=== PATIENT | male | born 1975 | race African-American/Black ===

== ENCOUNTER 2017-01-17 21:36 | Inpatient (IN) | payer MEDICAID ==
[~2017-01-17] VITALS: Ht 170.2 cm; Wt 84.0 kg
[2017-01-17 23:08] LABS: Basophils # (auto) 0 uL; Basophils % (auto) 0.1 % (0.0-2.0); Eosinophils # (auto) 0.2 uL; Eosinophils % (auto) 2.5 % (0.0-7.0); Hematocrit 46.2 % (41.0-53.0); Hemoglobin 15.7 g/dL (13.5-17.5); Lymphocytes # (auto) 1.3 uL; Lymphocytes % (auto) 17.1 % (10.0-50.0); Mean Corpuscular Hemoglobin 30.1 pg (28.0-32.0); Mean Corpuscular Volume 88.7 fL (80.0-100.0); Mean Platelet Volume 8.1 fL (7.4-10.4); Monocytes # (auto) 0 uL; Monocytes % (auto) 0.6 % (0.0-12.0); Neutrophils % (auto) 79.7 % (37.0-80.0); Platelet Count (auto) 323 10^3/uL (140-450); Red Cell Distribution Width 12.9 % (11.6-16.0); White Blood Cell 7.5 10^3/uL (4.4-10.8)
[2017-01-17 23:19] LABS: Albumin 3.1 g/dL (3.4-5.0); BUN/Creatinine Ratio 8.8; Calcium 7.8 mg/dL (8.5-10.1); Potassium 4.4 mmol/L (3.5-5.1)
[2017-01-17 23:22] LABS: Bilirubin, Total 1.6 mg/dL (0.2-1.0); Total Protein 7.2 g/dL (6.4-8.2)
[2017-01-18] MEDS ORDERED: ONDANSETRON HCL 4 MG/2 ML VIAL IV ONE (02:45)
[2017-01-18] MEDS ORDERED: SODIUM CHLORIDE 0.9% 1,000 ML IV ONE (02:45)
[2017-01-18] MEDS ORDERED: HYDROmorphone HCL 2 MG/ML VL IV ONE (02:45)
[2017-01-18 04:10] LABS: Urine Bilirubin Negative (Negative); Urine Blood Negative /uL (Negative); Urine Color Yellow (Yellow); Urine Glucose Normal (Normal); Urine Ketone TRACE (Negative); Urine Mucus FEW (None Seen); Urine Nitrite Negative (Negative); Urine RBC <1 /hpf (0 - 3); Urine Urobilinogen Normal (Negative); Urine pH 5.5 (5.0-8.0)
[2017-01-18] MEDS: SODIUM CHLORIDE 0.9% 1,000 ML IV SCH ×2 (06:32→22:17)
[2017-01-18] MEDS ORDERED: TEMAZEPAM 15 MG CAP PO PRN (06:45)
[2017-01-18] MEDS ORDERED: ACETAMINOPHEN 325 MG TAB PO PRN (06:45)
[2017-01-18] MEDS ORDERED: DIAZEPAM 5 MG TAB PO PRN (07:30)
[2017-01-18] MEDS ORDERED: THIAMINE INJ 100 MG, MULTIPLE VITAMIN 10 ML, FOLIC ACID 1 MG, MAGNESIUM SULF SDV 50% 8 ... IV SCH ×5 (08:00)
[2017-01-18] MEDS: ONDANSETRON HCL 4 MG/2 ML VIAL IV PRN ×4 (09:24→22:12)
[2017-01-18] MEDS: MORPHINE SULF INJ 2 MG/ML SYRINGE 1ML IV PRN ×4 (09:26→22:11)
[2017-01-18] MEDS: PANTOPRAZOLE SODIUM 40 MG/10 ML VIAL IV SCH (09:28)
[2017-01-18] MEDS ORDERED: ENOXAPARIN SOD 30 MG/0.3 ML SYRINGE SC SCH (10:00)
[2017-01-18] MEDS: ENOXAPARIN SOD 40 MG/0.4 ML SYRINGE SC SCH (10:28)
[2017-01-18] MEDS: THIAMINE HCL 100 MG TAB PO SCH (10:28)
[2017-01-18] MEDS: FOLIC ACID 1 MG TAB PO SCH (10:28)
[2017-01-18] MEDS: HYDROcodone-ACET 5/325MG TAB PO PRN ×2 (11:32→20:26)
[2017-01-18 12:35] VITALS: BP 118/75
[2017-01-18] MEDS ORDERED: NOR5T PO (13:39)
[2017-01-18] MEDS ORDERED: HYDR-531 PO (13:41)
[2017-01-18 17:12] VITALS: BP 131/86
[2017-01-18 20:00] VITALS: BP 126/79
[2017-01-18 22:00] VITALS: BP 126/79
[2017-01-19] MEDS: ONDANSETRON HCL 4 MG/2 ML VIAL IV PRN ×2 (05:25→10:21)
[2017-01-19] MEDS: MORPHINE SULF INJ 2 MG/ML SYRINGE 1ML IV PRN ×2 (05:26→10:22)
[2017-01-19 05:30] VITALS: BP 119/77
[2017-01-19 06:23] LABS: Potassium 4.3 mmol/L (3.5-5.1)
[2017-01-19 06:29] LABS: Albumin 2.2 g/dL (3.4-5.0); BUN/Creatinine Ratio 3.8; Calcium 7.6 mg/dL (8.5-10.1)
[2017-01-19 06:30] LABS: Basophils # (auto) 0 uL; Basophils % (auto) 0.3 % (0.0-2.0); Eosinophils # (auto) 0.3 uL; Eosinophils % (auto) 5.9 % (0.0-7.0); Hematocrit 37.4 % (41.0-53.0); Hemoglobin 12.7 g/dL (13.5-17.5); Lymphocytes % (auto) 22.4 % (10.0-50.0); Mean Corpuscular Hemoglobin 30.4 pg (28.0-32.0); Mean Corpuscular Hgb Conc. 33.9 g/dL (32.0-36.0); Mean Corpuscular Volume 89.6 fL (80.0-100.0); Mean Platelet Volume 8.6 fL (7.4-10.4); Monocytes # (auto) 0.4 uL; Monocytes % (auto) 9.2 % (0.0-12.0); Neutrophils # (auto) 2.9 uL; Neutrophils % (auto) 62.2 % (37.0-80.0); Platelet Count (auto) 206 10^3/uL (140-450); Red Cell Distribution Width 13.1 % (11.6-16.0); White Blood Cell 4.6 10^3/uL (4.4-10.8)
[2017-01-19 06:32] LABS: Bilirubin, Total 2.4 mg/dL (0.2-1.0)
[2017-01-19] MEDS: SODIUM CHLORIDE 0.9% 1,000 ML IV SCH (07:58)
[2017-01-19] MEDS: HYDROcodone-ACET 5/325MG TAB PO PRN ×2 (08:25→13:49)
[2017-01-19 08:34] VITALS: BP 130/84
[2017-01-19] MEDS: PANTOPRAZOLE SODIUM 40 MG/10 ML VIAL IV SCH (10:20)
[2017-01-19] MEDS: ENOXAPARIN SOD 40 MG/0.4 ML SYRINGE SC SCH (10:20)
[2017-01-19] MEDS: FOLIC ACID 1 MG TAB PO SCH (10:20)
[2017-01-19] MEDS: THIAMINE HCL 100 MG TAB PO SCH (10:21)
[2017-01-19 12:29] VITALS: BP 118/71
[2017-01-19 12:57] VITALS: BP 118/71
== END 2017-01-19 15:00 | disposition home or self-care (01) | DRG 282 ==
LOC: ER 21:44 → OVERFLOW 21:45 → WEST WING 01-18 07:52 → EAST 01-18 07:58 → WEST WING 01-18 12:35
PROVIDERS: ADMIT Internal Medicine; ATTEND Internal Medicine Pulmonary Disease
DX: K85.20 Alcohol induced acute pancreatitis without necrosis or infection (principal); N17.0 Acute kidney failure with tubular necrosis; E43 Unspecified severe protein-calorie malnutrition; F10.10 Alcohol abuse, uncomplicated; Y90.3 Blood alcohol level of 60-79 mg/100 ml; Z72.0 Tobacco use; Z68.29 Body mass index [BMI] 29.0-29.9, adult
CPT/HCPCS: 36415; 74176; 74181; 80053; 80307; 80320; 81001; 82150; 83690; 85025; 96361; 96374; 96375; C9113; J2405

== ENCOUNTER 2018-11-17 16:56 | Emergency (ER) | payer MEDICAID ==
[~2018-11-17] VITALS: Ht 170.2 cm; Wt 88.5 kg
[~2018-11-17 16:56] MED LIST: HYDR-531 PO
[2018-11-17] MEDS ORDERED: IOHEXOL 300 MG/ML 100ML BOTTLE IJ ONE (17:11)
[2018-11-17 18:42] LABS: Calcium 7.1 mg/dL (8.5-10.1)
[2018-11-17 18:45] LABS: Basophils # (auto) 0 uL; Basophils % (auto) 0.7 % (0.0-2.0); Eosinophils # (auto) 0.1 uL; Eosinophils % (auto) 2.5 % (0.0-7.0); Hemoglobin 15.6 g/dL (13.5-17.5); Lymphocytes # (auto) 0.8 uL; Lymphocytes % (auto) 14.7 % (10.0-50.0); Mean Corpuscular Hemoglobin 31.9 pg (28.0-32.0); Mean Corpuscular Volume 93.8 fL (80.0-100.0); Monocytes # (auto) 0.2 uL; Neutrophils # (auto) 4.2 uL; Neutrophils % (auto) 79.1 % (37.0-80.0); Nucleated Red Blood Cells % 0.2 %; Platelet Count (auto) 256 10^3/uL (140-450); Red Cell Distribution Width 13.3 % (11.8-14.3); White Blood Cell 5.3 10^3/uL (4.4-10.8)
[2018-11-17 18:48] LABS: BUN/Creatinine Ratio 8.5
[2018-11-17 18:51] LABS: Blood Alcohol 283.8 mg/dL (0-5)
[2018-11-17] MEDS ORDERED: IOHEXOL 350 MG/ML 100ML IJ ONE (18:52)
[2018-11-17 19:43] LABS: Urine Bacteria NONE SEEN /hpf (None Seen); Urine Blood 1+ /uL (Negative); Urine Mucus FEW (None Seen); Urine Specific Gravity 1.022 (1.001-1.035); Urine WBC 1 /hpf (0 - 3)
[2018-11-17 19:56] LABS: Amphetamine Screen, Urine NEGATIVE (NEGATIVE); Barbiturate Scree,Urine NEGATIVE (NEGATIVE); Benzodiazephine Screen, Urine NEGATIVE (NEGATIVE); Cannabinoid Screen, Urine NEGATIVE (NEGATIVE); Cocaine Screen, Urine NEGATIVE (NEGATIVE); Opiate Scree,Urine POSITIVE (NEGATIVE); Phencyclidine Screen, Urine NEGATIVE (NEGATIVE)
[2018-11-17] MEDS ORDERED: LIDOCAINE W/ EPINEPHRINE 2% INJ 20ML VIAL ID ONE ×2 (20:00→20:15)
[2018-11-17 21:38] VITALS: BP 113/68
[2018-11-17] MEDS ORDERED: ONDANSETRON HCL 4 MG/2 ML VIAL IV ONE (22:45)
[2018-11-17] MEDS ORDERED: HYDROcodone-ACET 10/325MG TAB PO ONE (22:45)
== END 2018-11-17 23:10 | disposition home or self-care (01) ==
LOC: EDBD 16:56 → EDUNIT# 16:56 → ER 17:00
DX: S91.311A Laceration without foreign body, right foot, initial encounter (principal); S91.312A Laceration without foreign body, left foot, initial encounter; S01.01XA Laceration without foreign body of scalp, initial encounter; S30.1XXA Contusion of abdominal wall, initial encounter; I10 Essential (primary) hypertension; Z79.899 Other long term (current) drug therapy; V48.5XXA Car driver injured in noncollision transport accident in traffic accident, initial encounter; Y93.89 Activity, other specified; Y99.8 Other external cause status; Y92.488 Other paved roadways as the place of occurrence of the external cause
CPT/HCPCS: 12005; 36415; 70450; 71260; 72125; 74177; 80048; 80307; 80320; 81001; 85025; 96374; 99284; J2405; Q9967

== ENCOUNTER 2021-04-30 09:53 | Emergency (ER) | payer MEDICAID, OTHER ==
[~2021-04-30] VITALS: Ht 170.2 cm; Wt 81.6 kg
[2021-04-30 09:58] VITALS: BP 142/94
== END 2021-04-30 11:04 | disposition left against medical advice (07) ==
LOC: ER 09:53
DX: R10.9 Unspecified abdominal pain (principal); R11.2 Nausea with vomiting, unspecified; Z53.21 Procedure and treatment not carried out due to patient leaving prior to being seen by health care provider

== ENCOUNTER 2022-11-27 18:53 | Emergency (ER) | payer OTHER ==
[~2022-11-27] VITALS: Ht 170.2 cm; Wt 84.1 kg
[2022-11-27 20:59] VITALS: BP 137/95
== END 2022-11-27 20:59 | disposition home or self-care (01) ==
LOC: ER 18:53
DX: K43.9 Ventral hernia without obstruction or gangrene (principal); I10 Essential (primary) hypertension

== ENCOUNTER 2023-05-21 17:26 | Emergency (ER) | payer OTHER ==
[~2023-05-21] VITALS: Ht 170.2 cm; Wt 86.5 kg
[2023-05-21 17:55] VITALS: BP 152/104; RESP 18; O2SAT 98
[2023-05-21 17:57] VITALS: PULSE 75
[2023-05-21 18:33] LABS: Basophils # (auto) 0 10 ^3/uL (0-0.2); Basophils % (auto) 1.1 % (0.0-2.0); Eosinophils # (auto) 0.2 10 ^3/uL (0-0.8); Eosinophils % (auto) 5.5 % (0.0-7.0); Hematocrit 45.4 % (41.0-53.0); Hemoglobin 14.9 g/dL (13.5-17.5); Lymphocytes # (auto) 1.2 10 ^3/uL (0.4-5.4); Lymphocytes % (auto) 27.1 % (10.0-50.0); Mean Corpuscular Hemoglobin 30.7 pg (28.0-32.0); Mean Corpuscular Hgb Conc. 32.7 g/dL (32.0-36.0); Mean Corpuscular Volume 93.8 fL (80.0-100.0); Monocytes # (auto) 0.2 10 ^3/uL (0-1.3); Monocytes % (auto) 5.6 % (0.0-12.0); Neutrophils # (auto) 2.6 10 ^3/uL (1.6-8.6); Neutrophils % (auto) 60.7 % (37.0-80.0); Nucleated Red Blood Cells % 0.1 %; Red Blood Cells 4.84 10^6/uL (4.5-5.90); Red Cell Distribution Width 12.9 % (11.8-14.3); White Blood Cell 4.3 10^3/uL (4.4-10.8)
[2023-05-21 18:52] LABS: Alanine Aminotransferase 45 U/L (7-40); Albumin 4.5 g/dL (3.2-4.8); Alkaline Phosphatase 80 U/L (46-116); Amylase 131 U/L (30-118); Anion Gap 9 (5-15); Aspartate Aminotransferase 60 U/L (13-40); Blood Alcohol 200.2 mg/dL (<10); Calcium 9.1 mg/dL (8.7-10.4); Carbon Dioxide 25 mmol/L (20-30); Chloride 105 mmol/L (98-107); Glucose 114 mg/dL (74-106); Lipase 42 U/L (12-53); Potassium 4.1 mmol/L (3.5-5.1); Sodium 139 mmol/L (136-145)
[2023-05-21 18:53] LABS: Bilirubin, Total 0.6 mg/dL (0.2-1.0); Total Protein 7.9 g/dL (5.7-8.2)
[2023-05-21 18:55] LABS: BUN/Creatinine Ratio 5.3 (10.0-20.0); Blood Urea Nitrogen < 5 mg/dL (9-23)
[2023-05-21 19:05] LABS: Urine Bacteria NONE SEEN /hpf (None Seen); Urine Blood Negative /uL (Negative); Urine Clarity Clear (Clear); Urine Color Yellow (Yellow); Urine Mucus FEW (None Seen); Urine Protein, UAD TRACE (Negative); Urine Specific Gravity 1.024 (1.001-1.035); Urine Urobilinogen Normal (Negative); Urine WBC <1 /hpf (0 - 3)
[2023-05-21 19:13] LABS: Amphetamine Screen, Urine Neg (NEGATIVE); Barbiturate Scree,Urine Neg (NEGATIVE); Benzodiazephine Screen, Urine Neg (NEGATIVE); Cannabinoid Screen, Urine Neg (NEGATIVE); Cocaine Screen, Urine Neg (NEGATIVE); Opiate Scree,Urine Neg (NEGATIVE); Phencyclidine Screen, Urine Neg (NEGATIVE)
== END 2023-05-21 18:36 | disposition left against medical advice (07) ==
LOC: EDBD 17:26 → EDUNIT# 17:26 → ER 17:26
DX: R10.84 Generalized abdominal pain (principal); F10.90 Alcohol use, unspecified, uncomplicated; Z53.21 Procedure and treatment not carried out due to patient leaving prior to being seen by health care provider
CPT/HCPCS: 36415; 80053; 80307; 80320; 81001; 82150; 83690; 85025; 93005

== ENCOUNTER 2023-12-30 13:00 | Emergency (ER) | payer OTHER ==
[~2023-12-30] VITALS: Ht 170.2 cm; Wt 79.2 kg
[2023-12-30 15:49] LABS: Basophils # (auto) 0.1 10 ^3/uL (0-0.2); Basophils % (auto) 2.4 % (0.0-2.0); Eosinophils # (auto) 0.2 10 ^3/uL (0-0.8); Hemoglobin 11.4 g/dL (13.5-17.5); Monocytes # (auto) 0.3 10 ^3/uL (0-1.3); Neutrophils # (auto) 2.1 10 ^3/uL (1.6-8.6)
[2023-12-30 15:51] LABS: Eosinophils % (auto) 4.2 % (0.0-7.0); Hematocrit 35.2 % (41.0-53.0); Lymphocytes # (auto) 1.4 10 ^3/uL (0.4-5.4); Mean Corpuscular Hemoglobin 29.5 pg (28.0-32.0); Mean Corpuscular Hgb Conc. 32.5 g/dL (32.0-36.0); Mean Corpuscular Volume 90.9 fL (80.0-100.0); Monocytes % (auto) 7.9 % (0.0-12.0); Neutrophils % (auto) 50.5 % (37.0-80.0); Nucleated Red Blood Cells % 0.1 %; Red Blood Cells 3.87 10^6/uL (4.5-5.90); Red Cell Distribution Width 13.9 % (11.8-14.3); White Blood Cell 4.1 10^3/uL (4.4-10.8)
[2023-12-30 16:00] LABS: Chloride 106 mmol/L (98-107); Potassium 3.8 mmol/L (3.5-5.1); Sodium 138 mmol/L (136-145)
[2023-12-30 16:01] LABS: Anion Gap 5 (5-15); Calcium 9.3 mg/dL (8.5-10.1); Carbon Dioxide 27 mmol/L (20-30)
[2023-12-30 16:06] LABS: BUN/Creatinine Ratio 5.9 (10.0-20.0); Blood Urea Nitrogen 6 mg/dL (9-23); Glucose 96 mg/dL (74-106)
[2023-12-30 16:16] LABS: INR 1.03 (0.9-1.15); Prothrombin Time 10.9 sec (9.3-11.8)
[2023-12-30 17:28] VITALS: BP 116/86; PULSE 79; RESP 18; TEMP 98.4; O2SAT 99
== END 2023-12-30 17:41 | disposition short-term general hospital (02) ==
LOC: ER 13:00
DX: S30.1XXA Contusion of abdominal wall, initial encounter (principal); K40.20 Bilateral inguinal hernia, without obstruction or gangrene, not specified as recurrent; I10 Essential (primary) hypertension; Z79.899 Other long term (current) drug therapy; X58.XXXA Exposure to other specified factors, initial encounter; Y93.89 Activity, other specified; Y92.89 Other specified places as the place of occurrence of the external cause; Y99.8 Other external cause status
CPT/HCPCS: 36415; 74176; 80048; 85025; 85610